=== PATIENT | male | born 1965 | race Caucasian/White ===

== ENCOUNTER 2019-07-17 10:32 | Emergency (ER) | payer OTHER ==
[~2019-07-17] VITALS: Ht 177.8 cm; Wt 93.4 kg
[2019-07-17] MEDS ORDERED: NIACOR500 MG (11:01)
[2019-07-17] MEDS ORDERED: CARVEDILOL ER40 MG (11:01)
[2019-07-17] MEDS ORDERED: EXFORGE 5-3201 EACH (11:01)
== END 2019-07-17 22:46 | disposition home or self-care (01) ==
LOC: ER 10:32 → CPU-OBS 10:44 → ER 10:44
DX: R07.89 Other chest pain (principal); R00.2 Palpitations; K29.70 Gastritis, unspecified, without bleeding; F06.4 Anxiety disorder due to known physiological condition
CPT/HCPCS: G0378; G0379; 93005

== ENCOUNTER 2022-10-09 13:38 | Outpatient (CLI) | payer OTHER ==
[~2022-10-09 13:38] MED LIST: CARVEDILOL ER40 MG; EXFORGE 5-3201 EACH; NIACOR500 MG
== END 2022-10-09 13:48 | disposition home or self-care (01) ==
LOC: PPH VACUNA 13:38
PROVIDERS: ATTEND Emergency Medicine Pediatric Emergency Medicine
DX: Z23 Encounter for immunization (principal)